=== PATIENT | male | born 1985 | race American Indian/Alaskan Native ===

== ENCOUNTER 2017-07-31 20:24 | Emergency (ER) | payer MEDICAID ==
[2017-07-31 20:30] VITALS: BMI 30.7
[2017-07-31 20:33] VITALS: TEMP 98.2
--- NOTE | 2017-07-31 20:47 | ED PDOC ---
Arrival/HPI - General Chief Complaint: Cough, Cold, Congestion Time Seen by Provider: 07/31/17 20:35 Historian: Patient - History of Present Illness Narrative History of Present Illness (Text): 07/31/17 20:44 32 year old male, no significant pmh, chronic smoker, complaining of coughing x 2 weeks. Pt. 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 Pt. also complaining about itching toes for the past 2 weeks. Past Medical History - Provider Review Nursing Documentation Reviewed: Yes - Infectious Disease Hx of Infectious Diseases: None - Psychiatric Hx Substance Use: No - Anesthesia Hx Anesthesia: No Family/Social History - Physician Review Nursing Documentation Reviewed: Yes Family/Social History: Unknown Family HX Smoking Status: Heavy Smoker > 10 Cigarettes Daily Hx Alcohol Use: Yes Frequency of alcohol use: Socially Hx Substance Use: No Allergies/Home Meds Allergies/Adverse Reactions: Allergies apple Allergy (Verified 07/31/17 20:29) ANAPHYLAXIS Review of Systems - Review of Systems Constitutional: Fatigue. absent: Fevers Eyes: absent: Vision Changes ENT: absent: Hearing Changes Respiratory: Cough, Sputum, Wheezing. absent: SOB Cardiovascular: absent: Chest Pain Gastrointestinal: absent: Abdominal Pain, Nausea, Vomiting Musculoskeletal: Back Pain. absent: Arthralgias, Myalgias Skin: absent: Rash, Pruritis Neurological: absent: Headache, Dizziness Physical Exam Vital Signs Reviewed: Yes Vital Signs Temp Pulse Resp BP Pulse Ox 07/31/17 22:54 64 18 118/76 98 07/31/17 20:48 20 07/31/17 20:32 98.2 F 60 16 115/77 95 Temperature: Afebrile Blood Pressure: Normal Pulse: Regular Respiratory Rate: Normal Appearance: Positive for: Well-Appearing, Non-Toxic, Comfortable Pain Distress: None - Systems Exam Head: Present: Atraumatic, Normocephalic Pupils: Present: PERRL Extroacular Muscles: Present: EOMI Conjunctiva: Present: Normal Mouth: Present: Moist Mucous Membranes Neck: Present: Normal Range of Motion Respiratory/Chest: Present: Clear to Auscultation, Good Air Exchange, Wheezes ( bilaterally), Decreased Breath Sounds (bilaterally), Rales (bilaterally), Rhonchi (bilaterally). No: Respiratory Distress, Accessory Muscle Use, Retracting, Tachypneic, Tender to Palpation Cardiovascular: Present: Regular Rate and Rhythm, Normal S1, S2, Other (no pedal edema. ). No: Murmurs Abdomen: Present: Normal Bowel Sounds. No: Tenderness, Distention, Peritoneal Signs, Rebound, Guarding Back: Present: Normal Inspection Upper Extremity: Present: Normal Inspection. No: Cyanosis, Edema Lower Extremity: Present: Normal Inspection. No: Edema Neurological: Present: GCS=15, Speech Normal, Motor Func Grossly Intact, Gait Normal, Memory Normal Skin: Present: Warm, Dry, Rashes (lichenification of the toes and the soles which the patient stated that it's itching, non-painful), Normal Color Psychiatric: Present: Alert, Oriented x 3, Normal Insight, Normal Concentration Medical Decision Making ED Course and Treatment: 07/31/17 20:51 -labs -cxr -duoneb x3 prn, prednisone 60mg po -observe and reassess 07/31/17 22:52 -Labs are non-significant -Chest xray show no active disease -Lung clear with significant improvement, pt. feels much better, azithromycin ointment. -Discharge home with azithromycin, albuterol, prednisone, nebulizer machine and mask, albuterol, lotrisone, stay hydrated, bed rest, stop smoking, follow up with your own pmd within 2 days, return to the ER for any new or worsening signs or symptoms. - Lab Interpretations Lab Results: 07/31/17 21:00 07/31/17 21:00 Lab Results 07/31/17 21:00: Sodium 140, Potassium 3.9, Chloride 104, Carbon Dioxide 28, Anion Gap 11, BUN 12, Creatinine 1.0, Est GFR ( Amer) > 60, Est GFR (Non- Af Amer) > 60, Random Glucose 94, Calcium 9.1, Total Bilirubin 0.5, AST 25, ALT 34, Alkaline Phosphatase 66, Total Protein 7.8, Albumin 4.0, Globulin 3.8, Albumin/Globulin Ratio 1.1 07/31/17 21:00: WBC 7.1, RBC 4.48, Hgb 12.4 L, Hct 37.7 L, MCV 84.2, MCH 27.7, MCHC 32.9, RDW 14.7 H, Plt Count 282, MPV 9.8, Gran % 43.5 L, Lymph % (Auto) 44.8 H, [place] % (Auto) 7.2 H, Eos % (Auto) 4.2, Baso % (Auto) 0.3, Gran # 3.07, Lymph # 3.2, [place] # 0.5, Eos # 0.3, Baso # 0.02 I have reviewed the lab results: Yes Interpretation: No clinic. lab abnormalty - RAD Interpretation Radiology Orders: 07/31/17 20:48 CHEST TWO VIEWS (PA/LAT) [RAD] Stat no active disease Shipper: Radiologist - Medication Orders Current Medication Orders: Discontinued Medications Albuterol/Ipratropium (Duoneb 3 Mg/0.5 Mg (3 Ml) Ud) 3 ml IH Q15M DAYAMI Stop: 07/31/17 21:31 Last Admin: 07/31/17 22:48 Dose: 3 ml Azithromycin (Zithromax) 500 mg PO STAT STA PRN Reason: Protocol Stop: 07/31/17 22:46 Last Admin: 07/31/17 22:52 Dose: 500 mg Prednisone (Prednisone Tab) 60 mg PO STAT ONE Stop: 07/31/17 20:49 Last Admin: 07/31/17 21:02 Dose: 60 mg - PA / ASSISTANT ACCOUNT MANAGER / Resident Statement / has reviewed & agrees with the documentation as recorded. Disposition/Present on Arrival - Present on Arrival Any Indicators Present on Arrival: No History of DVT/PE: No History of Uncontrolled Diabetes: No Urinary Catheter: No History of Decub. Ulcer: No History Surgical Site Infection Following: None - Disposition Have Diagnosis and Disposition been Completed?: Yes Diagnosis: Bronchitis, Tinea pedis Disposition: HOME/ ROUTINE Disposition Time: 22:54 Patient Plan: Discharge Condition: IMPROVED Additional Instructions: -Discharge home with azithromycin, albuterol, prednisone, nebulizer machine and mask, albuterol, lotrisone, stay hydrated, bed rest, stop smoking, follow up with your own pmd within 2 days, return to the ER for any new or worsening signs or symptoms. Prescriptions: Albuterol HFA [Ventolin HFA 90 mcg/actuation (8 g)] 2 puff IH [id number] PRN #1 dev PRN Reason: Other Albuterol 0.083% [Albuterol Sulfate 3 Ml] 3 ml IH QID PRN #30 neb PRN Reason: Other Azithromycin 250 mg PO DAILY #4 tab Clotrimazole/Betamethasone [Lotrisone] 1 appl EXT BID #30 g Mask, Face [Nebulizer Aerosol Mask Adult] 1 dev XX PRN PRN #1 dev PRN Reason: Other Nebulizer and Compressor [[place] Choice Whisper Aire Ped] 1 each MC DAILY PRN # 1 dev PRN Reason: Other Prednisone 50 mg PO DAILY #4 tab Referrals: Arithmaticaansley Damon Revamshi, [Non-Staff] - Follow up with primary [facility] [place] [Outside] - Follow up with primary Forms: WORK NOTE
[2017-07-31] MEDS: Albuterol-Ipratrop 3 mg / 0.5 (3 ml) UD IH SCH ×3 (21:02→22:48)
[2017-07-31 21:07] LABS: BASO # 0.02 K/mm3 (0.0-2.0); BASO % 0.3 % (0.0-3.0); EOS # 0.3 (0.0-0.7); EOS % 4.2 % (1.5-5.0); GRAN # 3.07 (1.4-6.5); GRAN % 43.5 % (50.0-68.0); HEMATOCRIT 37.7 % (42.0-52.0); LYMPH # 3.2 (1.2-3.4); LYMPH % 44.8 % (22.0-35.0); MEAN CELL VOLUME 84.2 fl (80.0-105.0); MEAN CORPUSCULAR HEMOGLOBIN 27.7 pg (25.0-35.0); MEAN CORPUSCULAR HGB CONC 32.9 g/dl (31.0-37.0); MEAN PLATELET VOLUME 9.8 fl (7.0-11.0); MONO # 0.5 (0.1-0.6); MONO % 7.2 % (1.0-6.0); RED CELL DISTRIBUTION WIDTH 14.7 % (11.5-14.5); WHITE BLOOD COUNT 7.1 10^3/ul (4.5-11.0)
[2017-07-31 21:22] LABS: ALB/GLOB RATIO 1.1 (1.1-1.8); ALKALINE PHOSPHATASE 66 U/L (38-126); ALT/SGPT 34 U/L (7-56); AST/SGOT 25 U/L (17-59); BILIRUBIN,TOTAL 0.5 mg/dL (0.2-1.3); BLOOD UREA NITROGEN 12 mg/dL (7-21); CALCIUM 9.1 mg/dL (8.4-10.5); CARBON DIOXIDE 28 mmol/L (21-33); CHLORIDE 104 mmol/L (98-107); GFR AFRICAN-AMERICAN > 60; GLUCOSE,RANDOM 94 mg/dL (70-110); POTASSIUM 3.9 mmol/L (3.6-5.0); SODIUM 140 mmol/L (132-148); TOTAL PROTEIN 7.8 g/dL (5.8-8.3)
[2017-07-31 22:55] VITALS: BP 118/76; PULSE 64; RESP 18; O2SAT 98
--- NOTE | 2017-08-01 08:25 | RAD ---
HISTORY: cough x 2 weeks COMPARISON: No prior. TECHNIQUE: Chest PA and lateral FINDINGS: LUNGS: No active pulmonary disease. PLEURA: No significant pleural effusion identified. No pneumothorax apparent. CARDIOVASCULAR: Normal. OSSEOUS STRUCTURES: No significant abnormalities. VISUALIZED UPPER ABDOMEN: Normal. OTHER FINDINGS: None. IMPRESSION: No active disease.
== END 2017-07-31 23:03 | disposition home or self-care (01) ==
LOC: MERGE 20:24 → ED 20:24
DX: J40 Bronchitis, not specified as acute or chronic (principal); B35.3 Tinea pedis; F17.210 Nicotine dependence, cigarettes, uncomplicated